=== PATIENT | female | born 1950 | race Caucasian/White ===

== ENCOUNTER → 2018-01-21 | Outpatient (CLI) | payer MEDICARE, BC ==
[~2018-01-21] VITALS: Ht 167.6 cm; Wt 86.2 kg
[~2018-01-21] MED LIST: APAP500 PO; ASPIRIN325 PO; COLACE100 MG PO; CONTRAVE ER 8-1 EACH PO; COZAAR 25 MG TA25 M1 PO; CYMBALTA60 MG PO; GRALISE600 MG PO; HOME MEDICATION PO; LIDODERM 5%1 PATC1 TOP; METFORMIN HCL500 MG PO; MOBIC15 MG PO; NEUPRO1 EAC1 TOP; OXYCODONE HCL 55 MG PO; OXYCODONE HCL5 M1 PO; PROBIOTIC1 EAC1 PO; REQUIP3 MG PO; ROBAXIN 750 MG750 M1 PO; TRAMADOL 50 MG50 MG PO; XARELTO10 MG PO
[2018-01-21 09:09] LABS: ABSOLUTE EOSINOPHILS 0.1 thou/uL (0.0-0.7); ABSOLUTE LYMPHOCYTES 1.2 thou/uL (0.8-5.3); ABSOLUTE MONOCYTES 0.3 thou/uL (0.0-1.2); BASOPHILS 0.3 %; EOSINOPHILS 2.1 %; HEMATOCRIT 39.7 % (37.0-47.0); HEMOGLOBIN 13.4 gm/dL (12.0-15.0); LYMPHOCYTES 26.7 %; MCH 31.1 pg (26.0-34.0); MCHC 33.7 g/dL (28.0-37.0); MCV 92.3 fL (80.0-100.0); MONOCYTES 7.4 %; NUCLEATED RBCS 0 /100WBC; PLATELET COUNT* 275 thou/uL (150-400); POLYS 63.5 %; RDW-CV 13.4 % (10.5-14.5); WBC 4.7 thou/uL (4.0-11.0)
[2018-01-21 09:21] LABS: APTT 28.7 Seconds (25.0-31.3); PROTIME 9.9 Seconds (9.20-11.50)
[2018-01-21 09:22] LABS: ALBUMIN 3.7 g/dL (3.4-5.0); CALCIUM 8.8 mg/dL (8.5-10.1); CREATININE 0.7 mg/dL (0.6-1.3); POTASSIUM 3.9 mmol/L (3.5-5.1); TOTAL BILIRUBIN 0.5 mg/dL (<0.1-1.0); TOTAL PROTEIN 7.2 g/dL (6.4-8.2)
[2018-01-21 09:58] LABS: ESR (SEDRATE) 12 mm/hr (0-30)
--- NOTE | 2018-01-21 13:53 | EKG ---
[place] [address] ELECTROCARDIOGRAM REPORT Name: FLETCHER CORCORAN Room: PRE IN [facility]#: [id number] Admission: Attend Phys: Javier Gordon Discharge: Date of : 54 Report #: [id number] THIS REPORT FOR: //name// [facility] Test Date: 2018-01-21 Test Time: 09:12:15 Pat Name: FLETCHER CORCORAN Department: Room: Gender: F [employer]: SUDEEP : 1950 Requested By: Shamir Edwards Order Number: [id number] Dian MD: Zackary Quan Measurements Intervals [place] Rate: 68 P: 58 MT: 144 QRS: 72 QRSD: 97 T: 63 QT: 434 QTc: 462 Interpretive Statements Sinus rhythm nonspecific st changes Compared to ECG 08/28/2016 09:08:51 No significant changes Electronically Signed On 01-21-2018 13:53:12 CDT by Zackary Quan [email or web address] <ELECTRONICALLY SIGNED> By: Zackary Quan MD, [facility] 01/21/18 1353 0912 1 Zackary Quan MD, FACC /EPI
[2018-01-22 02:07] LABS: GLYCOHEMOGLOBIN (HGB A1C) 5.2 % (4.8-5.6)
== END ==
LOC: M.LAB 08:00 → EDSTATUS 02-01 09:02 → M.PRE 02-01 09:37
PROVIDERS: Orthopaedic Surgery
DX: M19.011 Primary osteoarthritis, right shoulder (principal); Z96.611 Presence of right artificial shoulder joint